=== PATIENT | male | born 1960 | race Caucasian/White ===

== ENCOUNTER 2023-04-09 09:45 | Inpatient (IN) | payer OTHER ==
[~2023-04-09] VITALS: Ht 165.1 cm; Wt 89.4 kg
[~2023-04-09 09:45] MED LIST: ALBUTEIN; TUSSIONEX PENNKI5 ML PO
[2023-04-09] MEDS ORDERED: GLIPIZIDE XL5 MG PO (11:55)
[2023-04-09] MEDS ORDERED: FINASTERIDE5 MG PO (11:55)
[2023-04-09] MEDS ORDERED: TAMSULOSIN HCL0.4 MG PO (11:56)
[2023-04-09] MEDS ORDERED: SINGULAIR4 M1 (11:56)
[2023-04-09 12:57] LABS: HEMATOCRIT 44.5 % (39.0-48.0); HEMOGLOBIN 15.1 g/dL (13-16.00); MEAN CELL VOLUME 91.6 fL (80.0-100.00); MEAN CORPUSCULAR HEMOGLOBIN 31.1 pg (27.00-32.0); MEAN CORPUSCULAR HGB CONC 33.9 g/dl (32.0-36.0); PLATELET COUNT 236 K/uL (150-450); RED BLOOD COUNT 4.86 M/uL (4.00-6.00); RED CELL DISTRIBUTION WIDTH 14.1 % (11.5-14.5)
[2023-04-09 13:28] LABS: PH,URINE 7.5 (5.0-8.0); URINE APPEARANCE Clear; URINE BILIRRUBIN Negative (NEGATIVE); URINE BLOOD Negative; URINE COLOR Yellow; URINE GLUCOSE Negative (NEGATIVE); URINE LEUKOCYTE Negative; URINE NITRATE Negative; URINE PROTEIN Negative (NEGATIVE)
[2023-04-09 13:32] LABS: URINE BACTERIA 25.1 uL (0.0-1933); URINE RBC 8.9 uL (0.0-20.8)
[2023-04-09 13:47] LABS: URINE EPITHELIAL CELLS 1.2 uL (0.0-38.8); URINE WBC 0.6 uL (0.0-23.2)
[2023-04-09 13:53] LABS: INR 0.96; PARTIAL THROMBOPLASTIN TIME 24.9 SECONDS (22.0-34.0); PROTHROMBIN TIME 10.1 SECONDS (9.0-11.5)
[2023-04-09 14:06] LABS: CALCIUM 9.1 mg/dL (8.5-10.1); CREATININE SERUM 0.77 mg/dL (0.70-1.30); GFR 102.71; POTASSIUM 3.87 mEq/L (3.5-5.1)
[2023-04-15 06:20] LABS: HEMATOCRIT 36.5 % (39.0-48.0); HEMOGLOBIN 12.4 g/dL (13-16.00); MEAN CORPUSCULAR HEMOGLOBIN 31.5 pg (27.00-32.0); MEAN CORPUSCULAR HGB CONC 33.9 g/dl (32.0-36.0); PLATELET COUNT 207 K/uL (150-450); RED BLOOD COUNT 3.93 M/uL (4.00-6.00); RED CELL DISTRIBUTION WIDTH 13.7 % (11.5-14.5)
[2023-04-15 07:02] LABS: ALBUMIN 3.1 gm/dL (3.4-5.0); CALCIUM 8.3 mg/dL (8.5-10.1); CREATININE SERUM 0.76 mg/dL (0.70-1.30); GFR 104.27; PHOSPHOROUS 3.2 mg/dL (2.5-4.9); POTASSIUM 4.03 mEq/L (3.5-5.1)
== END 2023-04-15 11:26 | disposition home or self-care (01) | DRG 708 ==
LOC: O/R 04-14 05:30 → SURH 04-14 07:00 → SURG 04-14 15:26
PROVIDERS: ADMIT Urology; ATTEND Urology
PROC: 07BC4ZZ Excision of Pelvis Lymphatic, Percutaneous Endoscopic Approach (ICD-10-PCS; 2023-04-14)
PROC: 8E0W4CZ Robotic Assisted Procedure of Trunk Region, Percutaneous Endoscopic Approach (ICD-10-PCS; 2023-04-14)
PROC: 0VT04ZZ Resection of Prostate, Percutaneous Endoscopic Approach (ICD-10-PCS; principal; 2023-04-14 07:00)
DX: C61 Malignant neoplasm of prostate (principal); Z20.822 Contact with and (suspected) exposure to COVID-19
CPT/HCPCS: 55866; 38571; S2900

== ENCOUNTER 2023-04-17 07:24 | Emergency (ER) | payer OTHER ==
[~2023-04-17] VITALS: Ht 165.1 cm; Wt 89.4 kg
[~2023-04-17 07:24] MED LIST changes: +FINASTERIDE5 MG PO; +GLIPIZIDE XL5 MG PO; +SINGULAIR4 M1; +TAMSULOSIN HCL0.4 MG PO
[2023-04-17] MEDS ORDERED: GLIPIZIDE XL5 MG (07:31)
== END 2023-04-17 09:11 | disposition home or self-care (01) ==
LOC: ER 07:24
DX: T83.098A Other mechanical complication of other urinary catheter, initial encounter (principal); Z91.013 Allergy to seafood; Z88.8 Allergy status to other drugs, medicaments and biological substances; I10 Essential (primary) hypertension; E11.9 Type 2 diabetes mellitus without complications; Z79.84 Long term (current) use of oral hypoglycemic drugs; C61 Malignant neoplasm of prostate

== ENCOUNTER 2023-07-07 05:09 | Emergency (ER) | payer OTHER ==
[~2023-07-07] VITALS: Ht 165.1 cm; Wt 90.7 kg
[~2023-07-07 05:09] MED LIST changes: +GLIPIZIDE XL5 MG
[2023-07-07] MEDS ORDERED: KETOROLAC TROMETHAMINE 60 MG VIAL IM STA (06:46)
[2023-07-07] MEDS ORDERED: DEXAMETHASONE SODIUM PHOSPHATE 4 MG/ML VIAL IV ONE (10:00)
== END 2023-07-07 10:34 | disposition home or self-care (01) ==
LOC: ER 05:09
DX: M25.552 Pain in left hip (principal); Z91.013 Allergy to seafood; Z88.8 Allergy status to other drugs, medicaments and biological substances; E11.9 Type 2 diabetes mellitus without complications; Z79.84 Long term (current) use of oral hypoglycemic drugs; Z87.448 Personal history of other diseases of urinary system